=== PATIENT | male | born 1960 | race Caucasian/White ===

== ENCOUNTER → 2021-01-11 01:56 | Outpatient (CLI) | payer BC, SELFPAY ==
[2021-01-11 17:04] LABS: SARS-CoV-2 RNA PCR Negative
== END ==
PROVIDERS: PCP Internal Medicine; Visit Provider Internal Medicine Gastroenterology
DX: Z01.812 Encounter for preprocedural laboratory examination (principal); Z20.822 Contact with and (suspected) exposure to COVID-19
CPT/HCPCS: C9803; U0003; U0005

== ENCOUNTER 2021-01-14 00:11 | Day surgery (SDC) | payer BC, SELFPAY ==
[2021-01-05 12:35] VITALS: BMI 25.2
[2021-01-14 10:41] VITALS: BP 112/80; PULSE 92; RESP 18; TEMP 35.7; O2SAT 96
[2021-01-14] MEDS: LACTATED RINGERS 1,000 ML 150 ML IV CONT (10:52)
--- NOTE | 2021-01-14 11:20 | WPDANESEPPF ---
Anes - Initial Pre Proc Eval Procedure: Operation Date: 01/14/21 12:00 Proposed Procedures p Screening Colonoscopy - Edgardo Nicholson MD Date/Time: 01/14/21 11:20 Surgeon: Edgardo Nicholson MD Pre Op Diagnosis: hx of colon polyps Patient Data Age: 60 Gender: M Height: 5 ft 11 in Weight: 83.1 kg Last Vital Signs Temp 96.3 F L 01/14/21 10:41 Pulse 92 01/14/21 10:41 Resp 18 01/14/21 10:41 BP 112/80 01/14/21 10:41 Pulse Ox 96 01/14/21 10:41 Allergies Allergy/AdvReac Type Severity Reaction Status Date / Time No Known Allergies Allergy Verified 01/14/21 10:40 Home Medications Medication Instructions Recorded Confirmed Type tadalafil 20 mg tablet 20 mg PO DAILY PRN #30 tablet 01/21/20 01/05/21 Rx Patient hx anesthesia problems: none Family hx anesthesia problems: none [facility] Past Medical History Medical History (Updated 12/26/19 @ 15:54 by Amy Gibbs [facility]) GERD (gastroesophageal reflux disease) Social History Social History Smoking status: Never smoker Alcohol intake: current Drinks per week: 6 Alcohol use details: BEER Substance use: never Substance use type: does not use Living arrangements: with family Spiritual care concerns: No Anes - Eval Final PreProcedure Day of Procedure 01/14/21 11:20 Patient weight: normal Heart: regular rate and rhythm Lungs: clear to auscultation Airway: Mallampati scale class II Neurological: alert and oriented Last oral intake: >/= 8 hours ASA classification: II Emergent: no Anesthetic plan: proceed Anesthesia type and monitoring: general GIVS and standard monitoring Informed Consent: The patient's anesthetic plan and its attendant risks and benefits were discussed with the patient/family/POA. Questions were solicited and answers provided to the satisfaction of the patient/family/POA.
--- NOTE | 2021-01-14 12:03 | PM.HPGS ---
History of Present Illness History of Present Illness Consent: Risks, benefits, and alternatives have been discussed and questions answered. Patient agrees to proceed with procedure. Chief complaint: hx of colon polyps Narrative: Gerson Elizabeth is a 60 year old male Undergoing colon cancer screening. he had a polyp removed at the time of his last exam Review of Systems Review of Systems: All systems reviewed & are unremarkable except as noted in HPI and below PMFSH Past Medical History Medical History GERD (gastroesophageal reflux disease) Social History Social History Smoking status: Never smoker Alcohol intake: current Drinks per week: 6 Alcohol use details: BEER Substance use: never Substance use type: does not use Living arrangements: with family Spiritual care concerns: No Meds Home Medications and Allergies Home Medications Medication Instructions Recorded Confirmed Type tadalafil 20 mg tablet 20 mg PO DAILY PRN #30 tablet 01/21/20 01/05/21 Rx Allergies Allergy/AdvReac Type Severity Reaction Status Date / Time No Known Allergies Allergy Verified 01/14/21 10:40 Vital Signs Vital Signs - 24 hr 01/14/21 10:41 Temperature 35.7 C L Pulse Rate 92 Respiratory Rate 18 Blood Pressure 112/80 Pulse Oximetry 96 Exam Const: General: alert Orientation/consciousness: patient oriented x3 Resp: Auscultation: clear to auscultation bilaterally Cardio: Rhythm: regular rhythm GI: GI Palp: Yes Soft to palpation and No Tenderness to palpation present (GI) Neuro: General: patient oriented x3 Assessment and Plan Assessment and plan (1) Colon cancer screening: Code(s): Z12.11 - Encounter for screening for malignant neoplasm of colon Status: Acute Assessment and Plan: Colonoscopy with possible biopsy or polypectomy or cautery or injection of substances.
[2021-01-14 12:22] VITALS: BP 96/61; PULSE 75; RESP 17; O2SAT 97
[2021-01-14 12:32] VITALS: BP 107/65; PULSE 80; RESP 19; O2SAT 97
[2021-01-14 12:42] VITALS: BP 108/81; PULSE 70; RESP 19; O2SAT 100
== END 2021-01-14 12:55 | disposition home or self-care (01) ==
PROVIDERS: PCP Internal Medicine; Visit Provider Internal Medicine Gastroenterology
PROC: 0DJD8ZZ Inspection of Lower Intestinal Tract, Via Natural or Artificial Opening Endoscopic (ICD-10-PCS; CPT 45378; principal; 2021-01-14 12:00)
DX: Z12.11 Encounter for screening for malignant neoplasm of colon (principal); D12.4 Benign neoplasm of descending colon; K63.5 Polyp of colon
CPT/HCPCS: 45385; 88305; C9803; J7120; U0003; U0005

== ENCOUNTER 2024-03-07 09:18 | Outpatient (CLI) | payer BC, SELFPAY ==
--- NOTE | ~2024-03-07 | XR_ITS ---
EXAMINATION: XR chest 2V 03/07/2024 09:32 INDICATION: Pneumonia PROCEDURE: 2 view chest COMPARISON: No prior studies for comparison. FINDINGS: The lungs are clear. The cardiomediastinal silhouette is within normal limits. There are no pleural effusions. There is no pneumothorax suspected. IMPRESSION: 1: NO ACUTE CARDIOPULMONARY DISEASE. Reviewed, dictated and finalized at location B.
== END 2024-03-07 09:19 ==
LOC: GOSHIMG 09:20
PROVIDERS: PCP Internal Medicine; Visit Provider Clinical Nurse Specialist
DX: J18.9 Pneumonia, unspecified organism (principal)
CPT/HCPCS: 71046